=== PATIENT | male | born 1995 | race Caucasian/White ===

== ENCOUNTER → 2017-09-06 12:18 | Outpatient (CLI) | payer BC, SELFPAY ==
[2017-09-09 07:19] LABS: Cortisol,F,ug/L,U 54 ug/L (Undefined)
[2017-09-09 08:51] LABS: Cortisol,F,ug/24hr,U 73 ug/24 hr (0-50)
== END ==
PROVIDERS: PCP Family Medicine; Visit Provider Internal Medicine Endocrinology, Diabetes & Metabolism
DX: E29.1 Testicular hypofunction (principal)

== ENCOUNTER → 2017-10-04 08:25 | Outpatient (CLI) | payer BC, SELFPAY | PROVIDERS: PCP Family Medicine; Visit Provider Internal Medicine Endocrinology, Diabetes & Metabolism | DX: R79.89 Other specified abnormal findings of blood chemistry (principal); E29.1 Testicular hypofunction | CPT/HCPCS: 36415; 82533 ==

== ENCOUNTER → 2017-12-17 14:19 | Outpatient (CLI) | payer BC, SELFPAY ==
[2017-12-19 17:30] LABS: Sex Hormone Binding Globulin 8.5 nmol/L (16.5-55.9)
[2017-12-21 15:33] LABS: Testosterone,Free 1.6 pg/mL (9.3-26.5)
[2017-12-24 13:46] LABS: Testosterone, Total, LC/MS 34.8 ng/dL (264.0-916.0)
== END ==
PROVIDERS: Visit Provider Internal Medicine Endocrinology, Diabetes & Metabolism
DX: E29.1 Testicular hypofunction (principal)
CPT/HCPCS: 36415; 84270; 84402

== ENCOUNTER → 2018-02-12 08:49 | Outpatient (CLI) | payer BC, SELFPAY ==
[2018-02-16 12:23] LABS: Testosterone,Free 1.5 pg/mL (9.3-26.5)
[2018-02-18 11:40] LABS: Testosterone, Total, LC/MS 96.5 ng/dL (264.0-916.0)
== END ==
PROVIDERS: Visit Provider Internal Medicine Endocrinology, Diabetes & Metabolism
DX: R79.89 Other specified abnormal findings of blood chemistry (principal); E29.1 Testicular hypofunction
CPT/HCPCS: 36415; 84402; 84403

== ENCOUNTER → 2018-05-20 14:03 | Outpatient (CLI) | payer BC, SELFPAY ==
[2018-05-20 14:30] LABS: Hematocrit 47.9 % (42.0-52.0); Hemoglobin 15.6 g/dL (14.1-18.0); Mean Corpuscular HGB Conc 32.7 g/dL (31.8-35.4); Mean Corpuscular Hemoglobin 28.2 pg (27.0-31.2); Mean Corpuscular Volume 86.4 fl (80-94); Platelet Count 214 K/mm3 (142-424); Red Blood Count 5.54 M/mm3 (4.60-6.20); Red Cell Distribution Width 12.9 % (11.5-17.5); White Blood Count 5.4 K/mm3 (4.8-10.8)
[2018-05-20 16:06] LABS: Alanine Aminotransferase 89 U/L (12-78); Anion Gap 12.3 mEq/L (5-15); Aspartate Amino Transferase 57 U/L (15-37); Blood Urea Nitrogen 17 mg/dL (7-18); Calcium 9.1 mg/dL (8.5-10.1); Carbon Dioxide 28 mmol/L (21.0-32.0); Chloride 105 mmol/L (98-107); Creatinine,Serum 1.16 mg/dL (0.70-1.30); Estimated Glomerular Filt Rate 78 ml/min (>60); GFR (African American) 94 ML/MIN (>60); Glucose 90 mg/dL (74-106); Potassium 4.3 mmoL/L (3.5-5.1); Sodium 141 mmol/L (136-145)
[2018-05-25 07:30] LABS: Testosterone, Total, LC/MS 646.9 ng/dL (264.0-916.0); Testosterone,Free 18.9 pg/mL (9.3-26.5)
== END ==
PROVIDERS: PCP Family Medicine; Visit Provider Internal Medicine Endocrinology, Diabetes & Metabolism
DX: R79.89 Other specified abnormal findings of blood chemistry (principal); E29.1 Testicular hypofunction
CPT/HCPCS: 36415; 80048; 84402; 84403; 84450; 84460; 85014; 85018; 85048; 85049

== ENCOUNTER → 2018-05-27 11:00 | Outpatient (CLI) | payer BC, SELFPAY ==
[2018-05-31 06:18] LABS: Testosterone, Total, LC/MS 390.4 ng/dL (264.0-916.0); Testosterone,Free 9.3 pg/mL (9.3-26.5)
== END ==
PROVIDERS: PCP Family Medicine; Visit Provider Internal Medicine Endocrinology, Diabetes & Metabolism
DX: E29.1 Testicular hypofunction (principal); R79.89 Other specified abnormal findings of blood chemistry
CPT/HCPCS: 36415; 84402; 84403

== ENCOUNTER → 2019-03-13 12:20 | Outpatient (CLI) | payer BC, SELFPAY ==
[2019-03-13 13:29] LABS: Anion Gap 12.1 mEq/L (5-15); Blood Urea Nitrogen 20 mg/dL (7-18); Calcium 9.3 mg/dL (8.5-10.1); Carbon Dioxide 28 mmol/L (21.0-32.0); Chloride 104 mmol/L (98-107); Creatinine,Serum 1.23 mg/dL (0.70-1.30); Estimated Glomerular Filt Rate 72 ml/min (>60); GFR (African American) 87 ML/MIN (>60); Glucose 97 mg/dL (74-106); Potassium 4.1 mmoL/L (3.5-5.1); Sodium 140 mmol/L (136-145)
[2019-03-16 11:15] LABS: Testosterone, Total, LC/MS 259.5 ng/dL (264.0-916.0); Testosterone,Free 17.8 pg/mL (9.3-26.5)
== END ==
PROVIDERS: Visit Provider Internal Medicine Endocrinology, Diabetes & Metabolism
DX: R74.8 Abnormal levels of other serum enzymes (principal); R79.89 Other specified abnormal findings of blood chemistry; E29.1 Testicular hypofunction
CPT/HCPCS: 36415; 80048; 84402; 84403

== ENCOUNTER → 2019-03-24 12:57 | Outpatient (CLI) | payer BC, SELFPAY | PROVIDERS: PCP Family Medicine; Visit Provider Family Medicine | DX: G47.33 Obstructive sleep apnea (adult) (pediatric) (principal); R40.0 Somnolence; R06.83 Snoring; E66.9 Obesity, unspecified | CPT/HCPCS: G0399 ==

== ENCOUNTER → 2019-04-27 15:01 | Outpatient (CLI) | payer BC, SELFPAY ==
[2019-04-27 16:15] LABS: Alanine Aminotransferase 100 U/L (12-78); Aspartate Amino Transferase 146 U/L (15-37); Blood Urea Nitrogen 24 mg/dL (7-18); Calcium 9.2 mg/dL (8.5-10.1); Carbon Dioxide 26 mmol/L (21.0-32.0); Chloride 104 mmol/L (98-107); Creatinine,Serum 1.19 mg/dL (0.70-1.30); Estimated Glomerular Filt Rate 75 ml/min (>60); GFR (African American) 91 ML/MIN (>60); Glucose 94 mg/dL (74-106); Sodium 141 mmol/L (136-145)
[2019-05-02 06:51] LABS: Testosterone, Total, LC/MS 560.3 ng/dL (264.0-916.0); Testosterone,Free 19.3 pg/mL (9.3-26.5)
== END ==
PROVIDERS: Visit Provider Physician Assistant
DX: R74.8 Abnormal levels of other serum enzymes (principal); R79.89 Other specified abnormal findings of blood chemistry; E29.1 Testicular hypofunction
CPT/HCPCS: 36415; 80048; 84402; 84403; 84450; 84460

== ENCOUNTER → 2019-06-12 12:44 | Outpatient (CLI) | payer BC, SELFPAY ==
[2019-06-12 15:04] LABS: Alanine Aminotransferase 61 U/L (12-78); Aspartate Amino Transferase 52 U/L (15-37)
== END ==
PROVIDERS: Visit Provider Physician Assistant
DX: R74.8 Abnormal levels of other serum enzymes (principal); R79.89 Other specified abnormal findings of blood chemistry; E29.1 Testicular hypofunction
CPT/HCPCS: 36415; 84450; 84460

== ENCOUNTER → 2019-09-13 16:24 | Outpatient (CLI) | payer BC, SELFPAY ==
[2019-09-13 17:51] LABS: Semen Viscosity Watery (Normal); Volume,Semen 1.9 ml (2.0-5.0)
[2019-09-13 17:52] LABS: WBCs,Semen 0
[2019-09-13 18:00] LABS: Sperm Count 0 mil/mm3 (20-160)
[2019-09-13 18:56] LABS: Motility Quality Immotile Sperm (Mod-Rapid)
== END ==
PROVIDERS: Visit Provider Family Medicine
DX: E29.1 Testicular hypofunction (principal)
CPT/HCPCS: 89320

== ENCOUNTER → 2019-09-20 15:48 | Outpatient (CLI) | payer BC, SELFPAY ==
[2019-09-25 17:10] LABS: Testosterone, Total, LC/MS 214.7 ng/dL (264.0-916.0); Testosterone,Free 8.2 pg/mL (9.3-26.5)
== END ==
PROVIDERS: Visit Provider Physician Assistant
DX: E29.1 Testicular hypofunction (principal); R74.8 Abnormal levels of other serum enzymes; R79.89 Other specified abnormal findings of blood chemistry
CPT/HCPCS: 36415; 84402; 84403

== ENCOUNTER → 2019-09-21 19:44 | Outpatient (CLI) | payer BC, SELFPAY ==
[2019-09-21 20:01] LABS: Basophils % 0.5 % (0.1-2.0); Eosinophils # 0.1 K/mm3 (0.0-0.4); Hematocrit 49.2 % (42.0-52.0); Hemoglobin 16.7 g/dL (14.1-18.0); Lymphocytes # 2.2 K/mm3 (0.7-4.5); Lymphocytes % 31.6 % (10-50); Mean Corpuscular Hemoglobin 28.8 pg (27.0-31.2); Mean Corpuscular Volume 84.8 fl (80-94); Mean Platelet Volume 8.2 fl (7.4-10.4); Monocytes # 0.3 K/mm3 (0.1-1.0); Monocytes % 4.7 % (1.7-9.3); Neutrophils # 4.4 K/mm3 (1.8-7.8); Neutrophils % 62.2 % (37.0-80.0); Platelet Count 248 K/mm3 (142-424); Red Cell Distribution Width 12.4 % (11.5-17.5); White Blood Count 7.1 K/mm3 (4.8-10.8)
[2019-09-21 20:39] LABS: Hemoglobin A1C 5.3 % (0.0-7.0)
[2019-09-21 20:46] LABS: Alanine Aminotransferase 66 U/L (12-78); Albumin Level 4.5 gm/dL (3.4-5.0); Albumin/Globulin Ratio 1.3 (1.1-1.8); Alkaline Phosphatase 103 U/L (46-116); Anion Gap 15.1 mEq/L (5-15); Aspartate Amino Transferase 49 U/L (15-37); Bilirubin,Total 0.5 mg/dL (0.2-1.0); Blood Urea Nitrogen 21 mg/dL (7-18); C-Reactive Protein 0.3 mg/dL (0.0-0.9); Calcium 9.5 mg/dL (8.5-10.1); Carbon Dioxide 25 mmol/L (21.0-32.0); Chloride 101 mmol/L (98-107); Chol/HDL Ratio 3.4 (1-3.5); Cholesterol 162 mg/dL (140-200); Creatinine,Serum 1.26 mg/dL (0.70-1.30); Estimated Glomerular Filt Rate 70 ml/min (>60); GFR (African American) 84 ML/MIN (>60); Globulin 3.5 gm/dl (1.3-3.2); Glucose 90 mg/dL (74-106); HDL Cholesterol 48 mg/dL (27-67); LDL Cholesterol 89 mg/dL (0-130); Potassium 4.1 mmoL/L (3.5-5.1); Prostate Specific Ag, Diagnost 0.61 ng/mL (0.0-4.0); Sodium 137 mmol/L (136-145); T4 (Thyroxine) 6.7 ug/dl (4.7-13.3); Thyroid Stimulating Hormone 1.38 uIU/ml (0.358-3.740); Triglycerides 124 mg/dL (30-200); VLDL Cholesterol 25 mg/dL (0-40)
[2019-09-23 08:18] LABS: DHEA-Sulfate 412.3 ug/dL (138.5-475.2); FSH 0.3 mIU/mL (1.5-12.4); LH 0.1 mIU/mL (1.7-8.6); Progesterone 0.2 ng/mL (0.0-0.5); Prolactin 5.8 ng/mL (4.0-15.2)
[2019-09-23 15:31] LABS: Estradiol 36.3 pg/mL (7.6-42.6); Folate 6.4 ng/mL (>3.0); Triiodothyronine (T3) Free 4.3 pg/mL (2.0-4.4); Vitamin B12 513 pg/mL (232-1245); Vitamin D 25 Hydroxy 27.1 ng/mL (30.0-100.0)
[2019-09-25 07:54] LABS: Iron 90 ug/dl (28-170)
== END ==
PROVIDERS: Visit Provider Emergency Medicine
DX: Z13.220 Encounter for screening for lipoid disorders (principal); E34.9 Endocrine disorder, unspecified; Z12.5 Encounter for screening for malignant neoplasm of prostate; E29.1 Testicular hypofunction; E55.9 Vitamin D deficiency, unspecified; I42.9 Cardiomyopathy, unspecified; R68.89 Other general symptoms and signs; R79.89 Other specified abnormal findings of blood chemistry; R79.82 Elevated C-reactive protein (CRP); D51.9 Vitamin B12 deficiency anemia, unspecified; Z79.890 Hormone replacement therapy; R73.09 Other abnormal glucose; E23.6 Other disorders of pituitary gland; Z00.00 Encounter for general adult medical examination without abnormal findings
CPT/HCPCS: 36415; 80053; 80061; 82607; 82626; 82652; 82670; 82746; 82787; 83001; 83002; 83036; 83540; 84144; 84146; 84153; 84436; 84439; 84443; 84481; 85025; 86140

== ENCOUNTER → 2019-09-25 16:24 | Outpatient (CLI) | payer BC, SELFPAY ==
[2019-09-25 16:44] LABS: Basophils % 0.4 % (0.1-2.0); Eosinophils # 0.1 K/mm3 (0.0-0.4); Eosinophils % 1.4 % (0.1-12.0); Hematocrit 50.1 % (42.0-52.0); Hemoglobin 16.8 g/dL (14.1-18.0); Lymphocytes # 1.8 K/mm3 (0.7-4.5); Lymphocytes % 28.6 % (10-50); Mean Corpuscular HGB Conc 33.5 g/dL (31.8-35.4); Mean Corpuscular Hemoglobin 28.8 pg (27.0-31.2); Monocytes # 0.3 K/mm3 (0.1-1.0); Monocytes % 5.2 % (1.7-9.3); Neutrophils # 4.1 K/mm3 (1.8-7.8); Neutrophils % 64.3 % (37.0-80.0); Platelet Count 261 K/mm3 (142-424); Red Blood Count 5.83 M/mm3 (4.60-6.20); Red Cell Distribution Width 12.4 % (11.5-17.5); White Blood Count 6.3 K/mm3 (4.8-10.8)
[2019-09-25 17:43] LABS: Alanine Aminotransferase 58 U/L (12-78); Anion Gap 13.9 mEq/L (5-15); Aspartate Amino Transferase 37 U/L (15-37); Blood Urea Nitrogen 17 mg/dL (7-18); Calcium 9.3 mg/dL (8.5-10.1); Carbon Dioxide 27 mmol/L (21.0-32.0); Chloride 106 mmol/L (98-107); Creatinine,Serum 1.37 mg/dL (0.70-1.30); Estimated Glomerular Filt Rate 63 ml/min (>60); GFR (African American) 77 ML/MIN (>60); Glucose 123 mg/dL (74-106); Potassium 3.9 mmoL/L (3.5-5.1); Sodium 143 mmol/L (137-145)
[2019-09-29 10:47] LABS: Testosterone, Total, LC/MS 515.4 ng/dL (264.0-916.0); Testosterone,Free 18.9 pg/mL (9.3-26.5)
== END ==
PROVIDERS: Visit Provider Internal Medicine Endocrinology, Diabetes & Metabolism
DX: R74.8 Abnormal levels of other serum enzymes (principal); R79.89 Other specified abnormal findings of blood chemistry; E29.1 Testicular hypofunction
CPT/HCPCS: 36415; 80048; 84402; 84403; 84450; 84460; 85025

== ENCOUNTER → 2020-02-11 14:14 | Outpatient (CLI) | payer BC, SELFPAY ==
[2020-02-11 15:45] LABS: PH,Semen 8.5 (7.3-8.3); Semen Viscosity Stringy (Normal); Sperm Count 0 mil/mm3 (20-160); WBCs,Semen Negative
== END ==
PROVIDERS: Visit Provider Family Medicine
DX: E29.1 Testicular hypofunction (principal)
CPT/HCPCS: 89320

== ENCOUNTER 2020-08-27 20:02 | Emergency (ER) | payer BC, SELFPAY ==
[2020-08-27 20:02] VITALS: BP 159/101; PULSE 121; RESP 14; TEMP 37.3; O2SAT 97; BMI 43.5
--- NOTE | 2020-08-27 20:41 | HMH.EDUTC ---
[facility] [place] Clinical Impression: Viral syndrome Sinusitis Qualifiers: Sinusitis location: unspecified location Chronicity: acute Recurrence: non-recurrent Qualified Code(s): J01.90 - Acute sinusitis, unspecified Disposition: Home, Self-Care Condition on Discharge: Good Instructions: Sinusitis, DI for Sinusitis Additional Instructions: Drink plenty of fluids. Take tylenol for pain or fever. Return if you begin to have difficulty breathing. Follow up with your regular doctor. GO TO THE ER FOR ANY WORSENING SYMPTOMS Prescriptions: Azithromycin [Z-Arash 250mg Tab*] 250 mg PO UD DOSE PK #6 tab Transmission Status: Received by [id number] Referrals: Ivette Starks MD [Primary Care Provider] - Time of Disposition: 20:51 Medical Decision Making - Medical Records Medical records reviewed: No: I reviewed the patient's medical records. - Hever Inquiry Pt receiving controlled substance: No Vital Signs: 08/27/20 20:02 08/27/20 20:56 Temperature 99.1 F 99.1 F Temperature Source Oral Oral Pulse Rate 121 H Pulse Rate [Right] 121 H Respiratory Rate 14 14 Blood Pressure 159/101 H Blood Pressure [Right Arm] 159/101 H Blood Pressure Mean [Right Arm] 120 02 Sat by Pulse Oximetry 97 Oxygen Delivery Method Room Air Orders (Tests/Meds): ORDERS Category Date Time Status Covid-19 Nasal PCR Sendout P&C Routine Lab 08/27/20 20:30 Received [facility] [place] HPI - General Stated complaint: sinus problems Time Seen by Provider: 08/27/20 20:41 Mode of Arrival: Ambulatory Description of Symptoms (Recalled from Triage Doc. by RN): pt c/o fever,[place], cough, running nosr HEENT Symptoms (Recalled from RN notes): Yes Resp Symptoms (Recalled from RN notes): Yes Skin Symptoms (Recalled from RN notes): No MS Symptoms (Recalled from RN notes): No Functional Status (Recalled from RN notes): wnl - History of Present Illness Provider Complaint: He states that he has been having a cough, sinus congestion, fever, body aches and feeling bad since this morning. He denies any known exposure to covid. - Related Data Home Medications Medication Instructions Recorded Confirmed Esomeprazole Magnesium 40 mg PO DAILY 12/17/17 02/19/20 testosterone cypionate 200 mg/mL 100 mg SQ .10 days #2 ml 07/25/19 02/19/20 intramuscular oil anastrozole 1 mg tablet 1 mg PO WEEKLY tab 02/19/20 02/19/20 metformin 500 mg tablet 500 mg PO DAILY tab 02/19/20 02/19/20 Previous Rx's Medication Instructions Recorded Azithromycin [Z-Arash 250mg Tab*] 250 mg PO UD DOSE PK #6 tab 08/27/20 Allergies Allergy/AdvReac Type Severity Reaction Status Date / Time amoxicillin [AMOXICILLIN] Allergy Unknown I-HIVES Verified 08/27/20 20:33 - Worker's Comp Is this a Worker's Comp case?: No Is this an H Worker's Comp?: No Is this a [place] Worker's Comp?: No [facility] History - Hepatitis A Screen Drug use history?: No High risk sexual behaviors?: No History of sexually transmitted infection?: No Currently employed?: No Childcare worker?: No Do you have indoor plumbing?: Yes Do you have electricity?: Yes Attestation statement:: This patient has been screened for Hepatitis A risk factors. I have reviewed the patient's past medical history: Yes Other Medical History: Reports: Other Comment: BERNARD, low testosterone Other Surgeries: Yes: Colonoscopy - Social History Smoking Status: Never smoker Alcohol Intake: current Alcohol Intake Frequency:: 0-2 drinks per day Substance Use Type: denies use Occupational Status: employed Family Hx:: No significant family history ROS Obtained: Yes All systems reviewed & no additional complaints - Constitutional Constitutional: Reports chills, Reports fever(s), Denies poor appetite, Denies malaise - Eyes Eyes: Denies eye discharge - ENT Ears, Nose, Mouth, and Throat: Denies dizziness, Denies otalgia, Reports sore throat - Cardiovascular Cardiovascular: Denies chest pa
[2020-08-27 20:56] VITALS: BP 159/101; PULSE 121; RESP 14; TEMP 37.3; O2SAT 97
[2020-08-29 10:43] LABS: Covid-19 Nasal PCR Sendout P&C POSITIVE
--- NOTE | 2020-08-29 18:14 | PC.NURSE ---
PT NOTIFIED OF POSITIVE COVID RESULT
== END 2020-08-27 20:58 | disposition home or self-care (01) ==
PROVIDERS: Emergency Provider Nurse Practitioner Family; PCP Family Medicine
DX: U07.1 COVID-19 (principal); J01.90 Acute sinusitis, unspecified; E11.9 Type 2 diabetes mellitus without complications; Z79.84 Long term (current) use of oral hypoglycemic drugs; Z88.1 Allergy status to other antibiotic agents
CPT/HCPCS: 99202; G0463; U0004

== ENCOUNTER 2020-09-03 14:18 | Emergency (ER) | payer BC, SELFPAY ==
[2020-09-03 14:28] VITALS: BP 150/87; PULSE 118; RESP 16; TEMP 37.3; O2SAT 96; BMI 41.9
--- NOTE | 2020-09-03 14:39 | XR_ITS ---
PROCEDURE: XR CHEST 2V CLINICAL HISTORY: cough Cough and fever, Covid19 positive COMPARISON: No exams were available for comparison FINDINGS: The cardiomediastinal silhouette and pulmonary vascularity are within normal limits. Patchy density is present in the right upper and right lower lobe and left lower lobe consistent with bilateral faint infiltrates which may be seen with viral/Covid19 pneumonia. No effusions. No acute bony abnormalities. IMPRESSION: Bilateral ground-glass infiltrates consistent with Covid19 pneumonia Dictated by: Valerio Lowry MD 09/03/2020 15:40 Valerio Lowry MD in [place] 09/03/2020 15:40
--- NOTE | 2020-09-03 14:42 | HMH.EDGENADL ---
ED Disposition Clinical Impression: Pneumonia due to COVID-19 virus Disposition: Home, Self-Care Condition on Discharge: Good Instructions: DI for COVID-19 (Suspected or Confirmed ) Prescriptions: Ondansetron [Zofran 4mg ODT] 4 mg PO BIDP PRN #10 tab PRN Reason: Nausea Transmission Status: Pending to [id number] Referrals: Ivette Starks MD [Primary Care Provider] - - Critical Care Critical Care Time: No Attestation: On , the high probability of a clinically significant, sudden or life threatening deterioration of the following system(s) required my full and direct attention, intervention and personal management. The time I documented below is in addition to time spent performing reported procedures but includes the following listed in this critical care notation. Medical Decision Making - Medical Records Medical records reviewed: Yes: I reviewed the patient's medical records. - Hever Inquiry Pt receiving controlled substance: No Vital Signs: 09/03/20 14:28 Temperature 99.1 F Temperature Source Oral Pulse Rate [Right Radial] 118 H Respiratory Rate 16 Blood Pressure [Right Arm] 150/87 H Blood Pressure Mean [Right Arm] 108 Blood Pressure Source [Right Arm] Automatic Cuff Blood Pressure Position [Right Arm] Supine 02 Sat by Pulse Oximetry 96 Oxygen Delivery Method Room Air - Lab Data Lab Results 09/03/20 15:23: WBC 3.1 L, RBC 6.08, Hgb 18.3 H*, Hct 53.5 H, MCV 88.0, MCH 30.1, MCHC 34.2, RDW 13.3, Plt Count 164, MPV 7.7, Neut % (Auto) 73.8, Lymph % (Auto) 20.4, [place] % (Auto) 5.0, Eos % (Auto) 0.1, Baso % (Auto) 0.7, Neut # (Auto) 2.3, Lymph # (Auto) 0.6 L, [place] # (Auto) 0.2, Eos # (Auto) 0.0, Baso # (Auto) 0.0 09/03/20 15:23: Sodium 138, Potassium 4.0, Chloride 101, Carbon Dioxide 29, Anion Gap 12.0, BUN 18, Creatinine 1.40 H, Estimated Creat Clear 72, Estimated GFR 61, Est GFR ( Amer) 74, Glucose 108 H, Calcium 9.3, Total Bilirubin 0.5, AST 75 H, ALT 62, Alkaline Phosphatase 64, Total Protein 7.9, Albumin 4.4, Globulin 3.5 H, Albumin/Globulin Ratio 1.3 Result diagrams: 09/03/20 15:23 09/03/20 15:23 Orders (Tests/Meds): ED MEDICATIONS Discontinued Medications Generic Name Dose Route Start Last Admin Trade Name Freq PRN Reason Stop Dose Admin Sodium Chloride 1,000 mls @ 999 mls/hr 09/03/20 14:45 09/03/20 15:10 Sod Chlor 0.9% 1000ml Bag IV 09/03/20 15:45 999 mls/hr .Q1H1M JUNE Administration Ketorolac Tromethamine 30 mg 09/03/20 14:39 09/03/20 15:09 Ketorolac 30mg/Ml Vial IV 09/03/20 14:40 30 mg ONCE ONE Administration Ondansetron HCl 4 mg 09/03/20 14:39 09/03/20 15:09 Ondansetron 4mg/2ml Vial IV 09/03/20 14:40 4 mg ONCE ONE Administration - Radiology Data #1 Image(s): Chest Image Reviewed: Yes I reviewed the patient's radiology results, Yes I reviewed the patient's radiology image, Yes I have reviewed radiologist's interpretation Bilateral pneumonia consistent with viral process. - Reevaluation(s) Time: 16:05 Reevaluation #1: On reevaluation, patient is feeling better. He has no respiratory distress. No hypoxia. Patient will continue with supportive care. Given strict return precautions. Verbalized understanding. Medical Decision Narrative: 25-year-old male presented to the emergency department with fever, chills and cough. Patient recently diagnosed with coronavirus. Not hypoxic at this time. Work-up initiated. Patient treated symptomatically. General Adult HPI - General Chief complaint: Shortness of Breath/Dyspnea Stated complaint: covid +, no appetite, fever Time Seen by Provider: 09/03/20 14:30 Mode of Arrival: Ambulatory Limitations: No Limitations Description of Symptoms (Recalled from ER Triage Doc. by RN): Fever, shortness of breath - History of Present Illness HPI narrative: This is a 25-year-old male presented to the emergency department with shortness of breath. The patient was r
[2020-09-03 15:36] LABS: Eosinophils % 0.1 % (0.1-12.0); Lymphocytes # 0.6 K/mm3 (0.7-4.5); Monocytes # 0.2 K/mm3 (0.1-1.0); Red Blood Count 6.08 M/mm3 (4.60-6.20)
[2020-09-03 15:40] LABS: Basophils % 0.7 % (0.1-2.0); Hematocrit 53.5 % (42.0-52.0); Lymphocytes % 20.4 % (10-50); Mean Corpuscular HGB Conc 34.2 g/dL (31.8-35.4); Mean Corpuscular Hemoglobin 30.1 pg (27.0-31.2); Mean Platelet Volume 7.7 fl (7.4-10.4); Neutrophils # 2.3 K/mm3 (1.8-7.8); Neutrophils % 73.8 % (37.0-80.0); Platelet Count 164 K/mm3 (142-424); Red Cell Distribution Width 13.3 % (11.5-17.5); White Blood Count 3.1 K/mm3 (4.8-10.8)
[2020-09-03 15:42] LABS: Hemoglobin 18.3 g/dL (14.1-18.0)
[2020-09-03 15:49] LABS: Chloride 101 mmol/L (98-107); Sodium 138 mmol/L (136-145)
[2020-09-03 15:51] LABS: Blood Urea Nitrogen 18 mg/dl (9-20); Creatinine Clearance Estimated 72 mL/min (50-200); Estimated Glomerular Filt Rate 61 ml/min (>60); GFR (African American) 74 ML/MIN (>60)
[2020-09-03 15:52] LABS: Alanine Aminotransferase 62 U/L (12-78); Albumin Level 4.4 g/dl (3.5-5.0); Albumin/Globulin Ratio 1.3 (1.1-1.8); Alkaline Phosphatase 64 U/L (38-126); Aspartate Amino Transferase 75 U/L (17-59); Bilirubin,Total 0.5 mg/dl (0.2-1.3); Calcium 9.3 mg/dl (8.4-10.2); Carbon Dioxide 29 mmol/L (22.0-30.0); Globulin 3.5 g/dL (1.3-3.2); Glucose 108 mg/dl (74-100); Total Protein,Serum 7.9 g/dl (6.3-8.2)
[2020-09-03 16:31] VITALS: BP 130/65; PULSE 111; RESP 20; TEMP 37.3; O2SAT 97
== END 2020-09-03 16:33 | disposition home or self-care (01) ==
PROVIDERS: Emergency Provider Emergency Medicine; PCP Family Medicine
DX: U07.1 COVID-19 (principal); J12.82 Pneumonia due to coronavirus disease 2019; E11.9 Type 2 diabetes mellitus without complications; Z79.84 Long term (current) use of oral hypoglycemic drugs; Z88.1 Allergy status to other antibiotic agents
CPT/HCPCS: 71046; 80053; 85025; 96365; 96375; 99282; J2405

== ENCOUNTER → 2020-10-18 19:01 | Outpatient (CLI) | payer BC, SELFPAY ==
[2020-10-18 19:29] LABS: Basophils # 0.1 K/mm3 (0-0.2); Basophils % 0.8 % (0.1-2.0); Eosinophils # 0.1 K/mm3 (0.0-0.4); Eosinophils % 1.2 % (0.1-12.0); Hematocrit 52.6 % (42.0-52.0); Hemoglobin 17.6 g/dL (14.1-18.0); Lymphocytes # 1.7 K/mm3 (0.7-4.5); Lymphocytes % 29.8 % (10-50); Mean Corpuscular HGB Conc 33.5 g/dL (31.8-35.4); Mean Corpuscular Hemoglobin 29.4 pg (27.0-31.2); Mean Platelet Volume 7.8 fl (7.4-10.4); Monocytes # 0.3 K/mm3 (0.1-1.0); Monocytes % 4.5 % (1.7-9.3); Neutrophils # 3.7 K/mm3 (1.8-7.8); Neutrophils % 63.7 % (37.0-80.0); Platelet Count 235 K/mm3 (142-424); Red Blood Count 5.98 M/mm3 (4.60-6.20); Red Cell Distribution Width 14.2 % (11.5-17.5); White Blood Count 5.7 K/mm3 (4.8-10.8)
[2020-10-18 19:38] LABS: Alanine Aminotransferase 65 U/L (12-78); Albumin Level 5.1 g/dl (3.5-5.0); Albumin/Globulin Ratio 1.4 (1.1-1.8); Alkaline Phosphatase 78 U/L (38-126); Anion Gap 12.2 mEq/L (5-15); Aspartate Amino Transferase 55 U/L (17-59); Bilirubin,Total 0.7 mg/dl (0.2-1.3); Blood Urea Nitrogen 20 mg/dl (9-20); Carbon Dioxide 26 mmol/L (22.0-30.0); Chloride 105 mmol/L (98-107); Chol/HDL Ratio 4.3 (1-3.5); Cholesterol 195 mg/dl (140-200); Estimated Glomerular Filt Rate 67 ml/min (>60); GFR (African American) 81 ML/MIN (>60); Globulin 3.6 g/dL (1.3-3.2); Glucose 107 mg/dl (74-100); HDL Cholesterol 45 mg/dl (40-60); Iron 93 ug/dL (49-181); Potassium 4.2 mmoL/L (3.5-5.1); Sodium 139 mmol/L (136-145); Total Protein,Serum 8.7 g/dl (6.3-8.2); Triglycerides 101 mg/dl (30-150); Uric Acid 5.8 mg/dl (3.5-8.5); VLDL Cholesterol 20 mg/dL (0-40)
[2020-10-18 19:49] LABS: Direct LDL Cholesterol 119.52 mg/dL (100-129)
[2020-10-18 19:56] LABS: T4 (Thyroxine) 6.4 ug/dl (5.53-11.0)
[2020-10-18 20:05] LABS: C-Reactive Protein 1.6 mg/L (0-4); Hemoglobin A1C 5.6 % (4.0-6.0)
[2020-10-18 20:09] LABS: Thyroid Stimulating Hormone 1.26 uIU/mL (0.465-4.68)
[2020-10-18 20:44] LABS: Vitamin B12 275 pg/mL (239-931)
[2020-10-18 20:54] LABS: 25-OH Vitamin D, Total 35.8 ng/mL (30-100)
[2020-10-18 21:09] LABS: Folate 5.37 ng/mL
[2020-10-20 11:45] LABS: FSH <0.3 mIU/mL (1.5-12.4); LH <0.3 mIU/mL (1.7-8.6); Progesterone 0.2 ng/mL (0.0-0.5); Prolactin 8.7 ng/mL (4.0-15.2)
[2020-10-20 14:01] LABS: Estradiol 31.3 pg/mL (7.6-42.6); PSA, Free 0.35 ng/mL; Prostate Specific Ag 0.7 ng/mL (0.0-4.0); Triiodothyronine (T3) Free 3.7 pg/mL (2.0-4.4)
[2020-10-27 16:30] LABS: Testosterone, Total, LC/MS 1387.9 ng/dL (264.0-916.0); Testosterone,Free 41.2 pg/mL (9.3-26.5)
== END ==
PROVIDERS: Visit Provider Emergency Medicine
DX: Z00.00 Encounter for general adult medical examination without abnormal findings (principal); E34.9 Endocrine disorder, unspecified; E29.1 Testicular hypofunction; E55.9 Vitamin D deficiency, unspecified; I42.9 Cardiomyopathy, unspecified; R68.89 Other general symptoms and signs; R79.89 Other specified abnormal findings of blood chemistry; R79.82 Elevated C-reactive protein (CRP); D51.9 Vitamin B12 deficiency anemia, unspecified; R94.6 Abnormal results of thyroid function studies; R73.09 Other abnormal glucose; E23.1 Drug-induced hypopituitarism; E23.2 Diabetes insipidus; E23.3 Hypothalamic dysfunction, not elsewhere classified; E23.6 Other disorders of pituitary gland; Z13.220 Encounter for screening for lipoid disorders; Z79.890 Hormone replacement therapy; Z79.899 Other long term (current) drug therapy
CPT/HCPCS: 36415; 80053; 80061; 82306; 82607; 82626; 82670; 82746; 82787; 83001; 83002; 83036; 83540; 84144; 84146; 84153; 84154; 84402; 84403; 84436; 84439; 84443; 84481; 84550; 85025; 86140

== ENCOUNTER → 2021-06-05 13:42 | Outpatient (CLI) | payer BC, SELFPAY ==
[2021-06-05 14:14] LABS: Basophils % 0.7 % (0.1-2.0); Eosinophils # 0.1 K/mm3 (0.0-0.4); Eosinophils % 1.6 % (0.1-12.0); Hematocrit 52.1 % (42.0-52.0); Hemoglobin 17.8 g/dL (14.1-18.0); Lymphocytes # 1.7 K/mm3 (0.7-4.5); Lymphocytes % 28.8 % (10-50); Mean Corpuscular HGB Conc 34.2 g/dL (31.8-35.4); Mean Corpuscular Hemoglobin 30.2 pg (27.0-31.2); Mean Corpuscular Volume 88.2 fl (80-94); Mean Platelet Volume 8.3 fl (7.4-10.4); Monocytes # 0.4 K/mm3 (0.1-1.0); Monocytes % 7.2 % (1.7-9.3); Neutrophils # 3.6 K/mm3 (1.8-7.8); Neutrophils % 61.8 % (37.0-80.0); Platelet Count 235 K/mm3 (142-424); Red Blood Count 5.91 M/mm3 (4.60-6.20); Red Cell Distribution Width 12.7 % (11.5-17.5); White Blood Count 5.9 K/mm3 (4.8-10.8)
[2021-06-05 14:20] LABS: Hemoglobin A1C 5.4 % (4.0-6.0)
[2021-06-05 14:35] LABS: 25-OH Vitamin D, Total 71.3 ng/mL (30-100)
[2021-06-05 15:06] LABS: Alanine Aminotransferase 74 U/L (12-78); Albumin Level 4.2 g/dl (3.5-5.0); Albumin/Globulin Ratio 1.4 (1.1-1.8); Alkaline Phosphatase 73 U/L (38-126); Anion Gap 12.4 mEq/L (5-15); Aspartate Amino Transferase 57 U/L (17-59); Bilirubin,Total 0.4 mg/dl (0.2-1.3); Blood Urea Nitrogen 16 mg/dl (9-20); Calcium 9.3 mg/dl (8.4-10.2); Carbon Dioxide 28 mmol/L (22.0-30.0); Chloride 105 mmol/L (98-107); Chol/HDL Ratio 4.2 (1-3.5); Cholesterol 175 mg/dl (140-200); Estimated Glomerular Filt Rate 81 ml/min (>60); GFR (African American) 98 ML/MIN (>60); Globulin 2.9 g/dL (1.3-3.2); Glucose 101 mg/dl (74-100); HDL Cholesterol 42 mg/dl (40-60); Potassium 4.4 mmoL/L (3.5-5.1); Sodium 141 mmol/L (136-145); Total Protein,Serum 7.1 g/dl (6.3-8.2); Triglycerides 127 mg/dl (30-150); Uric Acid 5.6 mg/dl (3.5-8.5); VLDL Cholesterol 25 mg/dL (0-40)
[2021-06-05 15:16] LABS: C-Reactive Protein 2.8 mg/L (0-4); Direct LDL Cholesterol 109.28 mg/dL (100-129)
[2021-06-05 15:36] LABS: Thyroid Stimulating Hormone 2.19 uIU/mL (0.465-4.68)
[2021-06-05 15:54] LABS: Vitamin B12 341 pg/mL (239-931)
[2021-06-05 16:29] LABS: Iron 65 ug/dL (49-181)
[2021-06-07 11:35] LABS: Estradiol 18.6 pg/mL (7.6-42.6); FSH <0.3 mIU/mL (1.5-12.4); LH <0.3 mIU/mL (1.7-8.6); PSA, Free 0.31 ng/mL; Prolactin 12.4 ng/mL (4.0-15.2); Prostate Specific Ag 0.5 ng/mL (0.0-4.0)
[2021-06-13 10:17] LABS: Testosterone, Total, LC/MS 432.4 ng/dL (264.0-916.0); Testosterone,Free 17.7 pg/mL (9.3-26.5)
== END ==
PROVIDERS: Visit Provider Emergency Medicine
DX: R53.81 Other malaise (principal); R68.82 Decreased libido; E29.1 Testicular hypofunction; E66.9 Obesity, unspecified; Z68.41 Body mass index [BMI] 40.0-44.9, adult; Z13.89 Encounter for screening for other disorder; Z79.899 Other long term (current) drug therapy
CPT/HCPCS: 80053; 80061; 82306; 82607; 82626; 82670; 83001; 83002; 83036; 83520; 83540; 84146; 84153; 84154; 84402; 84403; 84443; 84550; 85025; 86140

== ENCOUNTER 2021-08-17 11:31 | Emergency (ER) | payer BC, SELFPAY ==
[2021-08-17 11:31] VITALS: BP 154/80; PULSE 114; RESP 18; TEMP 37.1; O2SAT 97; BMI 42.5
[2021-08-17 11:59] VITALS: BP 154/80; PULSE 104; O2SAT 95
[2021-08-17 12:00] LABS: Coronavirus 19, PCR Not Detected (NotDetected); Influenza B, PCR Not Detected (NotDetected)
[2021-08-17 12:43] LABS: Influenza A, PCR Detected (NotDetected)
--- NOTE | 2021-08-17 12:43 | HMH.EDGENADL ---
ED Disposition Clinical Impression: Influenza A Disposition: Home, Self-Care Condition on Discharge: Good Instructions: DI for Influenza -- Adult Additional Instructions: Tamiflu as prescribed Rest, drink plenty of fluids. Tylenol or ibuprofen for fever and aches. Isolation recommended for 7 days or until symptoms resolve, which ever is longer. Return to the emergency room if any severe shortness of breath, intractable vomiting, severe weakness. Prescriptions: Oseltamivir Phosphate [Tamiflu 75mg Capsule] 75 mg PO BID #10 cap Transmission Status: Pending to [id number] Referrals: Ivette Starks MD [Primary Care Provider] - - Critical Care Critical Care Time: No Attestation: On 08/17/21, the high probability of a clinically significant, sudden or life threatening deterioration of the following system(s) required my full and direct attention, intervention and personal management. The time I documented below is in addition to time spent performing reported procedures but includes the following listed in this critical care notation. Medical Decision Making - Hever Inquiry Pt receiving controlled substance: No Vital Signs: 08/17/21 11:31 08/17/21 11:59 08/17/21 12:58 Temperature 98.7 F Temperature Source Oral Pulse Rate 104 H 96 H Pulse Rate [Right Radial] 114 H Respiratory Rate 18 Blood Pressure 154/80 H 155/96 H Blood Pressure [Right Arm] 154/80 H Blood Pressure Mean [Right Arm] 104 Blood Pressure Source [Right Arm] Automatic Cuff Blood Pressure Position [Right Arm] Sitting 02 Sat by Pulse Oximetry 97 95 96 Oxygen Delivery Method Room Air Room Air - Lab Data Lab Results 08/17/21 11:41: SARS-CoV-2 (PCR) Not detected, Influenza A Untype (PCR) Detected A, Influenza Type B (PCR) Not detected 08/17/21 12:49: Group A Strep Rapid Negative Orders (Tests/Meds): ORDERS Category Date Time Status Strep Screen Confirmation Stat Micro 08/17/21 12:49 Received - Radiology Data #1 Image(s): Chest Image Reviewed: Yes I reviewed the patient's radiology image, Yes I have reviewed radiologist's interpretation PROCEDURE INFORMATION: Exam: XR Chest Exam date and time: 08/17/2021 12:43 PM Age: 26 years old Clinical indication: Cough and fever and other: Congestion; Patient HX: Cough, congestion, fever. ; Additional info: Cough, fever, SOA TECHNIQUE: Imaging protocol: XR of the chest. Views: 2 views. COMPARISON: CR XR CHEST 2V 09/03/2020 2:49 PM FINDINGS: Lungs: Improved aeration of both lungs compared with prior exam from 09/03/2020, with decreased hazy airspace opacities. Slight residual lower pulmonary interstitial prominence. No focal consolidation. Pulmonary vessels do not appear congested. Pleural spaces: Unremarkable. No significant pleural effusion. No pneumothorax. Heart/Mediastinum: Upper normal cardiac silhouette. Bones/joints: Mild thoracolumbar scoliosis. IMPRESSION: Improved aeration of both lungs compared with 09/03/2020, with mild residual lower pulmonary interstitial prominence. No focal consolidation. General Adult HPI - General Chief complaint: Upper Respiratory Infection Stated complaint: fever, sore throat, cough, congestion, soa Time Seen by Provider: 08/17/21 12:33 Mode of Arrival: Ambulatory Limitations: No Limitations Description of Symptoms (Recalled from ER Triage Doc. by RN): Pt c/o [place], runny nose, fever, SOA, productive cough since Wednesday - History of Present Illness HPI narrative: 2-day history of cough with clear sputum, shortness of breath, high fevers, rhinorrhea, sore throat, headache. Denies otalgia. Denies vomiting or diarrhea. His tested positive for influenza last week. She brought home a test for him on Wednesday and he tested negative. No known exposures to COVID-19 or other illnesses. He has not been vaccinated ag
[2021-08-17 12:58] VITALS: BP 155/96; PULSE 96; O2SAT 96
[2021-08-17 13:25] LABS: Strep Scrn Group A (Rapid) Negative (Negative)
[2021-08-17 14:11] VITALS: BP 161/104; PULSE 92; RESP 18; TEMP 37.1; O2SAT 97
== END 2021-08-17 14:12 | disposition home or self-care (01) ==
PROVIDERS: Emergency Provider Emergency Medicine; PCP Family Medicine
DX: J10.1 Influenza due to other identified influenza virus with other respiratory manifestations (principal)
CPT/HCPCS: 71046; 87430; 99283; C9803; U0003; U0005

== ENCOUNTER → 2021-12-31 16:59 | Outpatient (CLI) | payer BC, SELFPAY ==
[2022-01-09 08:19] LABS: Testosterone, Total, LC/MS 1315.5 ng/dL (264.0-916.0); Testosterone,Free 40.2 pg/mL (9.3-26.5)
== END ==
PROVIDERS: PCP Family Medicine; Visit Provider Family Medicine
DX: E29.1 Testicular hypofunction (principal)
CPT/HCPCS: 36415; 84402; 84403

== ENCOUNTER → 2022-01-01 09:16 | Outpatient (CLI) | payer BC, SELFPAY ==
[2022-01-01 10:43] LABS: Semen Viscosity Normal (Normal); WBCs,Semen Negative
[2022-01-01 10:44] LABS: Sperm Count 0 mil/mm3 (20-160)
== END ==
PROVIDERS: Visit Provider Family Medicine
DX: E29.1 Testicular hypofunction (principal)
CPT/HCPCS: 89320